=== PATIENT | female | born 1995 | race Caucasian/White ===

== ENCOUNTER 2022-01-29 14:23 | Emergency (ER) | payer MEDICAID ==
[~2022-01-29] VITALS: Ht 167.6 cm; Wt 44.0 kg
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
--- NOTE | 2022-01-29 15:25 | NUR ---
DR HILL AT BEDSIDE FOR EVAL.
--- NOTE | 2022-01-29 15:40 | NUR ---
COVID SWAB COLLECTED SENT TO LAB
--- NOTE | 2022-01-29 15:47 | NUR ---
MATERIAL CONTROL ANALYST AT BEDSIDE FOR BLOOD DRAW.
[2022-01-29 15:52] LABS: BILIRUBIN,URINE NEGATIVE (NEGATIVE); COLOR,URINE YELLOW (YELLOW); LEUKOCYTE ESTERASE ,URINE NEGATIVE (NEGATIVE); NITRITE, URINE NEGATIVE (NEGATIVE); PROTEIN,URINE 1+ mg/dl (NEGATIVE); UGLUCOSE NEGATIVE (NEGATIVE); UROBILINOGEN,URINE 0.2 EU/dL (0.2)
[2022-01-29 15:56] LABS: BASOPHILS % (AUTO) 0.3 % (0.0-2.0); HEMATOCRIT 38 % (33-45); LYMPHOCYTES # (AUTO) 2.5 K/uL (0.8-4.8); LYMPHOCYTES % (AUTO) 21.6 % (20.0-44.0); MEAN CORPUSCULAR HGB CONC 34 g/dl (31.0-36.0); MEAN CORPUSCULAR VOLUME 96 fL (82-100); MONOCYTES # (AUTO) 1.1 K/uL (0.1-1.30); MONOCYTES % (AUTO) 9.7 % (2.0-12.0); NEUTROPHILS # (AUTO) 7.8 K/uL (1.8-8.9); NEUTROPHILS % (AUTO) 68.4 % (43.0-81.0); PLATELET COUNT (AUTO) 287 K/uL (150-450); RED BLOOD CELL COUNT(AUTO) 4.02 MIL/uL (4.0-5.2); WHITE BLOOD COUNT (AUTO) 11.5 K/uL (4.3-11.0)
[2022-01-29 16:15] LABS: BACTERIA,URINE Rare /HPF (None Seen); RBC,URINE 0-2 /HPF (0-2); SQUAMOUS EPITHELIAL CELL,UR Few /HPF (None Seen); WBC,URINE 0-2 /HPF (0-3)
[2022-01-29 16:31] LABS: ALANINE AMINOTRANSFERASE 26 U/L (12-78); ALBUMIN 3.8 g/dL (3.4-5.0); ALCOHOL, BLOOD < 3 mg/dL (0-0); ALKALINE PHOSPHATASE 60 U/L (46-116); ASPARTATE AMINOTRANSFERASE 19 U/L (15-37); BILIRUBIN,DIRECT 0.3 mg/dL (0.0-0.2); BILIRUBIN,TOTAL 1.1 mg/dL (0.2-1.0); CALCIUM, SERUM 9.6 mg/dL (8.5-10.1); CARBON DIOXIDE 30 mmol/L (21-32); CHLORIDE 101 mmol/L (98-107); CREATININE 0.8 mg/dL (0.6-1.3); GLUCOSE 105 mg/dL (74-106); POTASSIUM 3.2 mmol/L (3.5-5.1); SODIUM SERUM 138 mmol/L (136-145); TOTAL PROTEIN, SERUM 7.4 g/dL (6.4-8.2); UREA NITROGEN, BLOOD 4 mg/dL (7-18)
[2022-01-29 16:44] LABS: ACETAMINOPHEN 0 ug/ml (10-30)
[2022-01-29] MEDS ORDERED: POTASSIUM CHLORIDE 20 MEQ TAB.PRT.SR PO ONE ×2 (18:00→18:01)
[2022-01-29] MEDS ORDERED: HALOPERIDOL LACTATE INJ 5 MG/ML VIAL IM ONE (22:30)
[2022-01-29] MEDS ORDERED: LORAZEPAM INJ 2 MG/ML VIAL IM ONE (22:30)
[2022-01-29] MEDS ORDERED: diphenhydrAMINE HCL 50 MG/ML VIAL IM ONE (22:30)
[2022-01-29] MEDS ORDERED: diphenhydrAMINE HCL 50 MG/ML VIAL ONE (23:03)
[2022-01-29] MEDS ORDERED: HALOPERIDOL LACTATE INJ 5 MG/ML VIAL ONE (23:03)
[2022-01-29] MEDS ORDERED: LORAZEPAM INJ 2 MG/ML VIAL ONE (23:04)
--- NOTE | 2022-01-30 08:38 | NUR ---
FAXED HOLD TO [facility] [employer], RECEIVED BY ANY.
--- NOTE | 2022-01-30 09:59 | NUR ---
Psych placement SW faxed clinicals for 5150 hold to the following [facility]: [facility] [address] TEL: [phone] [facility] tel: ;1 fax:[phone] [facility] TEL: [phone] fax: [phone] [facility] tel:[phone] FAX:[phone] [facility] fax:[phone] tel:[phone] [facility] [place] tel:[phone]; 4 FAX: [phone] [facility] FA[facility]:[phone] tel: [phone]
--- NOTE | 2022-01-30 10:16 | NUR ---
Patient Tranfers to outside Facility Physician:Dr. Bassett [phone] number for report Location:[address] [address] [place]
--- NOTE | 2022-01-30 10:20 | NUR ---
[facility] CALLED ETA 60-75 MIN PER HEVER.
--- NOTE | 2022-01-30 10:27 | NUR ---
report given to Artem MEDINA to continue care.
--- NOTE | 2022-01-30 12:05 | NUR ---
EMT AT BEDSIDE TO PICKUP PT
[2022-01-30 12:09] VITALS: BP 124/66
--- NOTE | 2022-01-30 12:11 | NUR ---
patient left via ambulance accompanied by emt in no distress.
== END 2022-01-30 12:10 ==
LOC: ER 14:23
DX: Z02.2 Encounter for examination for admission to residential institution (principal); E87.6 Hypokalemia; F60.3 Borderline personality disorder; F31.9 Bipolar disorder, unspecified; Z79.899 Other long term (current) drug therapy; F43.10 Post-traumatic stress disorder, unspecified; X58.XXXS Exposure to other specified factors, sequela; Z20.822 Contact with and (suspected) exposure to COVID-19
CPT/HCPCS: 99285; 96372 ×2; 85025; 80048; 80076; 84703; 81001; 36415; 87426; 80143; 80320; 80307; J2060; J1200; J1630; C9803; G0480